=== PATIENT | male | born 1990 | race Caucasian/White ===

== ENCOUNTER 2022-07-08 00:03 | Emergency (ER) | payer OTHER ==
[~2022-07-08] VITALS: Ht 170.2 cm; Wt 65.8 kg
[2022-07-08 00:10] VITALS: BP 122/66
--- NOTE | 2022-07-08 00:19 | NUR ---
TO LOBBY FOLLOWING TRIAGE. EKG WAS DONE IN TRIAGE
[2022-07-08] MEDS ORDERED: LORazepam 1 MG TAB PO ONE (00:40)
[2022-07-08 01:12] VITALS: BP 122/66
--- NOTE | 2022-07-08 01:12 | NUR ---
Patient discharged with v/s stable. Written and verbal after care instructions given and explained. Patient verbalized understanding. Ambulatory with steady gait. All questions addressed prior to discharge. Advised to follow up with PMD.
== END 2022-07-08 01:12 | disposition home or self-care (01) ==
LOC: MED 00:03
DX: R00.2 Palpitations (principal)
CPT/HCPCS: 93005; 99283

== ENCOUNTER 2022-07-09 20:23 | Emergency (ER) | payer OTHER ==
[~2022-07-09] VITALS: Ht 170.2 cm; Wt 64.9 kg
[2022-07-09 20:56] VITALS: BP 144/90
--- NOTE | 2022-07-09 20:59 | NUR ---
TO LOOBY A/W BED AMBULATORY
--- NOTE | 2022-07-09 23:09 | NUR ---
PT TO BED 4
--- NOTE | 2022-07-09 23:17 | NUR ---
RECEIVED IN BED 3 N/V, H/A,IN BALANCE IN WALKING, AFTER NOT TAKING ABILIFY, DEPAKOTE FOR 3-5 DAYS
--- NOTE | 2022-07-09 23:51 | NUR ---
DR DONOHUE AT BEDSIDE FOR EXAM
[2022-07-09] MEDS ORDERED: ONDANSETRON 4 MG ODT PO ONE (23:55)
[2022-07-09] MEDS ORDERED: KETOROLAC 60 MG/2 ML VIAL IM ONE (23:55)
[2022-07-10] MEDS ORDERED: ONDA8TAB87 PO (00:11)
[2022-07-10] MEDS ORDERED: IBUP-2213 PO (00:11)
[2022-07-10] MEDS ORDERED: PRED20TA5 PO (00:11)
[2022-07-10 01:05] VITALS: BP 144/90
--- NOTE | 2022-07-10 01:05 | NUR ---
Patient discharged with v/s stable. Written and verbal after care instructions given and explained. Patient alert, oriented and verbalized understanding of instructions. Ambulatory with steady gait. All questions addressed prior to discharge. ID band removed. Patient advised to follow up with PMD. Rx of ZOFRAN, AND PREDNISONE given. Patient educated on indication of medication including possible reaction and side effects. Opportunity to ask questions provided and answered.
== END 2022-07-10 01:05 | disposition home or self-care (01) ==
LOC: MED 20:23
DX: R51.9 Headache, unspecified (principal); R11.2 Nausea with vomiting, unspecified; R50.9 Fever, unspecified; Z98.890 Other specified postprocedural states
CPT/HCPCS: 96372; 99283; J1885; Q0162

== ENCOUNTER 2022-07-10 17:10 | Emergency (ER) | payer OTHER ==
[~2022-07-10 17:10] MED LIST: IBUP-2213 PO; ONDA8TAB87 PO; PRED20TA5 PO
--- NOTE | 2022-07-10 17:50 | NUR ---
WALKED IN REQUESTING LAB WORK TO BE DONE FOR A PHYSICIAN'S OFFICE. PATIENT WAS ADVISED BY HIS PHYSICIAN TO GET BLOOD WORK DONE AT A LAB CENTER BUT DID NOT WANT TO WAIT. ADVISED PATIENT THAT [facility] WILL EVALUATE FOR SYMPTOMS AND WILL ORDER BLOOD WORK THROUGH THEIR EXAMINATION. PATIENT STATES HE DOES NOT WANT TO BE SEEN ANYMORE AND STATES HE WILL GO TO A LAB CENTER FOR THE BLOOD DRAW ORDERED BY HIS PHYSICIAN. ADVISED PATIENT THAT HE CAN STILL BE EVALUATED FOR ANY COMPLAINTS THAT HE MIGHT HAVE AT THIS TIME. 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 PATIENT LEFT PRIOR TO TRIAGE.
== END 2022-07-10 17:50 | disposition left against medical advice (07) ==
LOC: MED 17:10
DX: Z53.21 Procedure and treatment not carried out due to patient leaving prior to being seen by health care provider (principal)